=== PATIENT | male | born 1985 | race Caucasian/White ===

== ENCOUNTER 2018-01-04 19:43 | Day surgery (SDC) | payer BC, SELFPAY ==
[2018-01-04 19:43] VITALS: BP 137/82; PULSE 96; RESP 16; TEMP 37.3; O2SAT 99; BMI 29.0
--- NOTE | 2018-01-04 19:58 | CT_ITS ---
STUDY: CT PELVIS WITH CONTRAST REASON FOR EXAM: Male, 32 years old. Rectal pain. Fever 1 week. RADIATION DOSAGE (If Supplied By Facility): CTDIvol = ( 16.20 ) mGy, DLP = ( 806.00 ) mGycm TECHNIQUE: Transaxial imaging of the pelvis was performed without oral contrast. 100ml ml of Isovue 300 contrast was administered intravenously. Multiplanar coronal and sagittal images were reformatted. Individualized dose optimization techniques were used for this CT. COMPARISON: None. FINDINGS: Normal urinary bladder. Normal visualized small intestine. Normal visualized colon. Posterior lateral to the anus there is a 3.1 x 1.6 x 2.0 cm fluid collection with a mildly enhancing ill-defined wall. There is no pelvic fluid. There is no pelvic lymphadenopathy or mass lesion. Normal visualized pelvic arteries. Normal abdominal wall. Normal osseous structures. CT/Pelvis WITH IV Contrast IMPRESSION: 3.1 x 1.6 x 2.0 cm perianal abscess. Electronically Signed: Angelita Spence MD at 21:14 EDT Tel , Service support ,
[2018-01-04] MEDS: 0.9% Normal Saline 1,000 ML 125 ML IV (20:18)
[2018-01-04 20:23] LABS: Absolute Lymphocyte Count 2.21 X10^3/ul (0.83-4.51); Absolute Neutrophil Count 10.5 X10^3/uL (2.0-7.7); Basophil# 0.01 X10^3/uL; Basophil% 0.1 % (0-1); Eosinophil# 0.03 X10^3/uL; Eosinophils% 0.2 % (0-5); Hematocrit 40.2 % (40-54); Hemoglobin 13.5 g/dl (13.0-16.5); Lymphocyte # 2.21 X10^3/ul (4.0); Lymphocyte % 17.3 % (19-41); Mean Corp Hgb Conc 33.6 g/gl (32-36); Mean Corpuscular Hgb 29.5 pg (27.0-32.0); Mean Corpuscular Volume 87.8 fL (80-94); Mean Platelet Vol. 8.5 fl (6.2-12.0); Monocyte# 0.02 X10^3/uL; Monocyte% 0.2 % (0-10); Neutrophil # 10.51 X10^3/uL (2.7-7.7); Neutrophil % 82.1 % (47-70); Platelet Count 264 K/mm3 (150-450); RBC Distribution Width CV 12.6 % (11.6-14.6); RBC Distribution Width SD 40.4 fl (35.1-43.9); Red Blood Count 4.58 M/mm3 (4.6-6.2); White Blood Count 12.8 K/mm3 (4.4-11.0)
[2018-01-04 20:24] LABS: POSITIVE COUNT NO; POSITIVE DIFFERENTIAL NO; POSITIVE MORPHOLOGY NO
[2018-01-04 20:50] LABS: Anion Gap 8 (5-15); BUN 12 mg/dL (7-18); BUN/Creat Ratio 10.9 RATIO (10-20); Calcium,Total 8.8 mg/dL (8.5-10.1); Chloride 101 mmol/L (98-107); EST Glomerular Filtration Rate 82 mL/min (>60); Est Glom Filt Rate - Afr Amer 99 mL/min (>60); Estimated Creatinine Clearance 101.73 ml/min; Glucose 100 mg/dL (74-106); Sodium Level 139 mmol/L (136-145)
[2018-01-04 20:54] LABS: Bacteria 0 SEEN /hpf (None Seen); Mucous, Urine 0 SEEN /hpf (<or=2+); Squamous Epithelial Cells - UA 0 SEEN /hpf (0-5); White Blood Cells 0 SEEN /hpf (0-5)
[2018-01-04 20:59] LABS: Color, Urine Yellow (Yellow); Glucose, Dipstick Normal (Normal); Ketone-Dipstick Negative (Negative); Leukocyte Esterase-Dipstick Negative /ul (Negative); Nitrite-Dipstick Negative (Negative); Occult Blood-Urine 150 /ul (Negative); Protein-Dipstick Negative (Negative); Specific Gravity, Urine 1.005 (1.002-1.030); Urine Bilirubin Dipstick Negative (Negative); Urine Clarity Clear (Clear); Urine Urobilinogen Normal (Normal)
[2018-01-04 21:07] LABS: Red Blood Cells-Urine 0-5 SEEN /hpf (0-5)
--- NOTE | 2018-01-04 21:33 | ED.DCSUM_ITS ---
- ER Visit Summary Date of Service: 01/04/18 Chief Complaint: [Rectal pain and fever] History of Present Illness: The patient is a 32 M [presents the emergency department complaint of rectal pain for about a week. Patient states that he has had fever for about 3 days and has not been feeling well. Patient was seen at urgent care yesterday and was started on Augmentin. Patient denies any dysuria. He denies any blood in his stool or black tarry stool.] Physical Examination: [HEENT-PERRLA, EOMI. Cranial nerves II through XII grossly intact. TMs clear. Mucous membranes moist. No adenopathy. Cardiovascular-regular rate and rhythm without murmur or ectopy Lungs-clear to auscultation, chest wall stable without crepitus or subcu emphysema Abdomen-normoactive bowel sounds, soft, nontender, no rebound or rigidity, no peritoneal signs. Rectal exam-patient has no external masses noted. On digital rectal exam no masses are palpated although he had tenderness to the posterior wall of the rectum along the tip of the coccyx. No fluctuant masses noted. Extremities-intact ?4, normal range of motion, normal pulses, atraumatic] Test Results: [CBC with differential obtained showed a white blood cell count of 12.8, hemoglobin 13, hematocrit 40, platelets 264. Chemistries unremarkable. Urinalysis was normal. CT scan of the pelvis with IV contrast obtained showed a 3.1 x 1.6 x 2.0 cm perianal abscess.] Emergency Department Course and Treatment: [Case was discussed with general surgeon on-call Dr. Manny Kyle who will present to the emergency department to evaluate patient] Treatment Plan: [Pending evaluation by Dr. Kyle] Disposition: [Pending] Impression: [Perianal abscess] This note was generated with [employer] dictation software. It may contain incorrect words, spelling, and punctuation that were not noted in review of the chart prior to signing ED Disposition - Plan for ED Patient: Chief Complaint: Other, Pain/Inj Referrals: Heather Staples, [facility] [Primary Care Provider] -
--- NOTE | 2018-01-04 22:09 | HP.PCM_ITS ---
Problem List (1) Perianal abscess Status: Acute History of Present Illness Date of Admission: 01/04/18 The patient is a 32 year old M presents the emergency department complaint of rectal pain for about a week. Patient states that he has had fever for about 3 days and has not been feeling well. Patient was seen at urgent care yesterday and was started on Augmentin. Patient denies any dysuria. He denies any blood in his stool or black tarry stool. While in the ER he was noted to have a low-grade fever. CAT scan of the pelvis was obtained. Posterior lateral to the anus there is a 3.1 x 1.6 x 2.0 cm fluid collection with a mildly enhancing ill-defined wall. Past Medical History Allergies No Known Allergies Allergy (Verified 01/04/18 19:45) Home Medications: Ambulatory Orders Medication Instructions Recorded Amoxicillin/Potassium Clav 1 each PO BID 01/04/18 [Augmentin 875-125 Tablet] Smoking Status: Never smoker - *Family History Maternal History Items: No pertinent history Review of Systems Constitutional: Reports: Fever. Denies: Night Sweats Gastrointestinal: Denies: Abdominal Pain, Constipation, Diarrhea, Hematemesis, Nausea, Melena, Vomiting Genitourinary: Denies: Dysuria, Frequency, Hematuria, Urgency Musculoskeletal: Denies: Joint Pain VTE Information - Inpt Only VTE Present on Admission: No VTE Mechan Device Prophylaxis: SCD's VTE Pharm Prophylaxis ordered?: No Patient Problems: Active and Suspected Problems Perianal abscess (Acute) - Physical Exam Lungs: Clear to auscultation Cardiovascular: Regular rate, Regular Rhythm, No murmurs Abdomen: Bowel Sounds Present - Patient is tender in the posterior perianal area. The overlying skin does not appear red. There is mild induration in this area., Soft, Non Tender, Non-Distended Vital Signs Temp Pulse Resp BP Pulse Ox 99.2 F H 96 16 137/82 H 99 01/04/18 19:43 01/04/18 19:43 01/04/18 19:43 01/04/18 19:43 01/04/18 19:43 Weight: 208 lb Body Mass Index (BMI) 29.0 Laboratory Tests Past 24 Hrs 01/04/18 01/04/18 01/04/18 20:10 20:10 20:45 WBC 12.8 H RBC 4.58 L Hgb 13.5 Hct 40.2 MCV 87.8 MCH 29.5 MCHC 33.6 RDW 12.6 RDW Differential 40.4 Plt Count 264 MPV 8.5 Immature Gran % (Auto) 0.100 Neut % (Auto) 82.1 H Lymph % (Auto) 17.3 L [place] % (Auto) 0.2 Eos % (Auto) 0.2 Baso % (Auto) 0.1 Absolute Neuts (auto) 10.5 H Absolute Lymphs (auto) 2.21 Total Counted Not Reportable Sodium 139 Potassium 4.0 Chloride 101 Carbon Dioxide 30.0 Anion Gap 8 BUN 12 Creatinine 1.10 Estim Creat Clear Calc 101.73 Est GFR (MDRD) Af Amer 99 Est GFR (MDRD) Non-Af 82 BUN/Creatinine Ratio 10.9 Glucose 100 Calcium 8.8 Urine Color Yellow Urine Clarity Clear Urine pH 7.0 Ur Specific [place] 1.005 Urine Protein Negative Urine Glucose (UA) Normal Urine Ketones Negative Urine Occult Blood 150 H Urine Nitrite Negative Urine Bilirubin Negative Urine Urobilinogen Normal Ur Leukocyte Esterase Negative Urine RBC 0-5 SEEN Urine WBC 0 SEEN Ur Squamous Epith Cells 0 SEEN Urine Bacteria 0 SEEN Urine Mucus 0 SEEN Assessment/Plan All Active Problems Perianal abscess (Acute) I had a long discussion with he and his . I think the best thing to do is go to surgery and do an exam under anesthesia and more than likely externally draining this abscess. If there is a large fluctuant with in the rectum then we can drain it through their the CAT scan does not show this. And I unfortunately do not have high hopes that this will be able to be done. Patient states he has done a little research and perianal abscesses. He understands that there is probably better than a 50% chance that it may recur. He however was not aware that he could possibly and in my opinion more and likely develop a perianal fistula. I discussed with him that this might be a longer-term type of issue which probably is going to require a seton suture. I see many abscesses like this in the past and this is certainly a possibility for this to happen. He understands of bleeding and infection of the most likely risk and after discussion with he and his they are willing to proceed.
[2018-01-04 22:14] VITALS: BP 148/89; PULSE 87; RESP 16; TEMP 38.6; O2SAT 96; BMI 29.0
--- NOTE | 2018-01-04 22:58 | PCM.OPRPT ---
Problem List (1) Perianal abscess Status: Acute Report of Operation Date of Procedure: 01/04/18 Pre-Operative Diagnosis: k61.0 perianal abscess Post-Operative Diagnosis: Same Surgery/Procedure Performed:: Incision and drainage of perianal abscess Type of Anesthesia:: General Anesthesiologist: Karen Dick Estimated Blood Loss (mL): <25 cc Description of Procedure: Patient was brought into the operating room and placed in the supine position. Under excellent general endotracheal intubation the legs were placed up in stirrups and the perianal area was sterilely prepped and draped in the usual fashion. Digital rectal exam revealed a firmness on the posterior aspect of the perianal area. The overlying skin however did not look as indurated as I originally thought I injected Exparel in this area and then took an 18-gauge and went into the abscess cavity to identify the most direct route to it. I injected Exparel all around this area and made an incision on the skin outside the perianal area I went down approximately 4-7 mm and entered the purulent cavity I dissected with a hemostat and then a Kimberly and a large amount of purulent material came out. Cultures and sensitivity were obtained. I irrigated out the pocket with saline and peroxide mixture I inspected the anal area and no peroxide went into the anal or rectal area. I made sure I was posterior to the anal musculature. In the end he had good sphincter tone. I placed 1 inch iodoform gauze into the wound and sterile dressings were applied. - Admit VTE Documentation VTE Present on Admission: No VTE Mechan Device Prophylaxis: SCD's VTE Pharm Prophylaxis ordered?: No Reason prophylaxis not ordered:: Treatment Not Indicated
[2018-01-04] MEDS: BUPIVACAINE LIPOSOME/PF 20 ML VIAL OPERA.SITE (23:05)
[2018-01-04 23:43] VITALS: BP 119/61; BP 137/82; PULSE 102; RESP 18; TEMP 37.8; O2SAT 99
[2018-01-04 23:45] VITALS: BP 121/62; BP 137/82; PULSE 91; RESP 17; O2SAT 92
[2018-01-05] VITALS (7 sets, daily range): BP systolic 101–137; BP diastolic 54–82; PULSE 48–94; RESP 16–18; TEMP 36.6–37.2; O2SAT 93–100; BMI 29.5; BMI 29.6
[2018-01-05] MEDS: Docusate Sodium 100 MG Capsule PO (02:54)
[2018-01-05] MEDS: Piperacil/Tazobactam 3.375 GM/50 ML ML IV (05:23)
[2018-01-05] MEDS: Lactated Ringers 1,000 ML 75 ML IV ×2 (07:19)
--- NOTE | 2018-01-05 08:43 | PCM.PN.SRG ---
Patient Problems: Active and Suspected Problems Perianal abscess (Acute) Subjective: No fevers overnight. Pain is tolerable. He has not had a bowel movement. Objective: Remove the packing. There is no induration. It is not actively bleeding. Appropriately tender around incision site. Packing had some dried blood but no signs of undrained pus - Physical Exam Vital Signs Temp Pulse Resp BP Pulse Ox 97.9 F 52 L 16 108/54 L 100 01/05/18 08:05 01/05/18 08:05 01/05/18 08:05 01/05/18 08:05 01/05/18 08:05 Oxygen Flow Rate (L/min) 2 Oxygen Delivery Method Room Air Weight: 214 lb 15.211 oz Body Mass Index (BMI) 29.5 Intake and Output for Last 24 Hours 01/03/18 01/04/18 01/05/18 23:59 23:59 23:59 Intake Total 2301 / 2301 Output Total 800 / 800 Balance 1501 / 1501 Laboratory Tests Past 24 Hrs 01/04/18 01/04/18 01/04/18 20:10 20:10 20:45 WBC 12.8 H RBC 4.58 L Hgb 13.5 Hct 40.2 MCV 87.8 MCH 29.5 MCHC 33.6 RDW 12.6 RDW Differential 40.4 Plt Count 264 MPV 8.5 Immature Gran % (Auto) 0.100 Neut % (Auto) 82.1 H Lymph % (Auto) 17.3 L [place] % (Auto) 0.2 Eos % (Auto) 0.2 Baso % (Auto) 0.1 Absolute Neuts (auto) 10.5 H Absolute Lymphs (auto) 2.21 Total Counted Not Reportable Sodium 139 Potassium 4.0 Chloride 101 Carbon Dioxide 30.0 Anion Gap 8 BUN 12 Creatinine 1.10 Estim Creat Clear Calc 101.73 Est GFR (MDRD) Af Amer 99 Est GFR (MDRD) Non-Af 82 BUN/Creatinine Ratio 10.9 Glucose 100 Calcium 8.8 Urine Color Yellow Urine Clarity Clear Urine pH 7.0 Ur Specific [place] 1.005 Urine Protein Negative Urine Glucose (UA) Normal Urine Ketones Negative Urine Occult Blood 150 H Urine Nitrite Negative Urine Bilirubin Negative Urine Urobilinogen Normal Ur Leukocyte Esterase Negative Urine RBC 0-5 SEEN Urine WBC 0 SEEN Ur Squamous Epith Cells 0 SEEN Urine Bacteria 0 SEEN Urine Mucus 0 SEEN Medical Necessity - Tobacco Use Smoking Status: Never smoker Tobacco Use: Non-smoker Assessment/Plan All Active Problems Perianal abscess (Acute) We are going to teach the patient to do wet-to-dry dressing changes at least twice a day particularly after he is doing his Epson salt soaks. I want him to be soaking in Epsom salts twice daily and packing afterwards. He is to continue his antibiotics at home. I wrote him a prescription for Percocet. Given the amount of pus that he had come out of there was quite surprised that he did not spike a temperature last night at area was significantly indurated but he seems to be responding quite appropriately. Cultures and sensitivity and Gram stain are all still pending at this time.
--- NOTE | 2018-01-05 08:45 | PCM.DC.GS ---
Discharge Diet: Light diet - advance as tolerated - If you have questions about your diet instructions, please talk to your doctor. Discharge Activity: Return to Normal Activity, May Drive May shower in (days): 1 Lifting Restrictions: 10 pounds Call your doctor if your incision/area has: Continuous Slow Oozing, Sudden Increased Bleeding, Increased Pain/ Swelling, Increased Redness, Foul Smelling Discharge Call your doctor if you observe: Fever of 101 or Higher Cleanse incision/area with: Normal Saline - After each soak please packed the wound open so that it stays open. And leave a Kotex pad back there for any undue drainage Additional Dressing/Incision Instructions:: Warm soaks in Epsom salts twice a day. Please place 2 cups of Epsom salts as hot as water she can tolerate soap for at least 20 minutes or until her fingertips look like prunes. Allergies/Adverse Reactions: Allergies No Known Allergies Allergy (Verified 01/04/18 19:45) Medications to take at Discharge Amoxicillin/Potassium Clav [Augmentin 875-125 Tablet] 1 each PO BID 01/04/18 Colace 01/05/18 Oxycodone HCl/Acetaminophen [Percocet 5/325] 1 - 2 tab PO Q4H PRN PRN 4 Days #30 tab 01/05/18 The following prescriptions were given: Oxycodone HCl/Acetaminophen [Percocet 5/325] 1 - 2 tab PO Q4H PRN PRN 4 Days #30 tab PRN Reason: Pain Primary Care Physician: Heather Staples NP-C [Primary Care Provider] - Test Results: Test results from this visit will be discussed in further detail at your follow-up appointment, if applicable. Please Follow Up With: Manny Kyle MD - [phone] When: Call to make an appointment to be seen in about 10 days.
--- NOTE | 2018-01-05 08:49 | DCINST_ITS ---
Discharge Diet: Light diet - advance as tolerated - If you have questions about your diet instructions, please talk to your doctor. Discharge Activity: Return to Normal Activity, May Drive May shower in (days): 1 Lifting Restrictions: 10 pounds Call your doctor if your incision/area has: Continuous Slow Oozing, Sudden Increased Bleeding, Increased Pain/ Swelling, Increased Redness, Foul Smelling Discharge Call your doctor if you observe: Fever of 101 or Higher Cleanse incision/area with: Normal Saline - After each soak please packed the wound open so that it stays open. And leave a Kotex pad back there for any undue drainage Additional Dressing/Incision Instructions:: Warm soaks in Epsom salts twice a day. Please place 2 cups of Epsom salts as hot as water she can tolerate soap for at least 20 minutes or until her fingertips look like prunes. Allergies/Adverse Reactions: Allergies No Known Allergies Allergy (Verified 01/04/18 19:45) Medications to take at Discharge Amoxicillin/Potassium Clav [Augmentin 875-125 Tablet] 1 each PO BID 01/04/18 Colace 01/05/18 Oxycodone HCl/Acetaminophen [Percocet 5/325] 1 - 2 tab PO Q4H PRN PRN 4 Days # 30 tab 01/05/18 The following prescriptions were given: Oxycodone HCl/Acetaminophen [Percocet 5/325] 1 - 2 tab PO Q4H PRN PRN 4 Days # 30 tab PRN Reason: Pain Primary Care Physician: Heather Staples NP-C [Primary Care Provider] - Test Results: Test results from this visit will be discussed in further detail at your follow- up appointment, if applicable. Please Follow Up With: Manny Kyle MD - [phone] When: Call to make an appointment to be seen in about 10 days.
== END 2018-01-05 10:08 | disposition home or self-care (01) ==
LOC: ED 20:09 → SDC 22:14 → MS3 01-06 09:26
PROVIDERS: Emergency Provider Emergency Medicine; Family Provider Nurse Practitioner Family; PCP Nurse Practitioner Family; Visit Provider Surgery
PROC: (CPT 46040; principal; 2018-01-04 22:25)
DX: K61.0 Anal abscess (principal)
CPT/HCPCS: 46050; 72193; 80048; 81001; 85025; 87070; 87075; 87077; 87186; 87205; 99282; J7120; Q9967; J2405

== ENCOUNTER → 2023-02-12 | Outpatient (CLI) | payer BC, SELFPAY ==
--- NOTE | 2023-02-12 08:35 | RAD_ITS ---
INDICATION: HEMATURIA EXAMINATION/TECHNIQUE: X-RAY - XR Abdomen COMPARISON: None. FINDINGS: Frontal views of the abdomen and pelvis were obtained. No dilated loops of small bowel. No evidence of constipation. Phleboliths within the pelvis. No definite renal stones. RAD/Abdomen Single View IMPRESSION: No renal stones identified. Electronically Signed: Gavino Strickland MD at 17:00 EDT ,
== END | disposition home or self-care (01) ==
PROVIDERS: PCP Nurse Practitioner Family; Referring Provider Urology; Visit Provider Urology
DX: R31.21 Asymptomatic microscopic hematuria (principal); Z87.442 Personal history of urinary calculi
CPT/HCPCS: 74018